=== PATIENT | male | born 1995 | race Caucasian/White ===

== ENCOUNTER 2017-01-20 10:43 | Emergency (ER) | payer OTHER ==
[2017-01-20 10:48] VITALS: TEMP 97.7
[2017-01-20 11:41] LABS: % IMMATURE GRANULYOCYTES 0.2 % (0.0-1.1); ABSOLUTE IMMATURE GRANULOCYTES 0.01 10^3/uL (0.00-0.10); ADD DIFF? NO; ADD MORPH? NO; ADD SCAN? NO; ATYPICAL LYMPHOCYTE FLAG 20 (0-99); FRAGMENT RBC FLAG 0 (0-99); HEMATOCRIT 46.1 % (40.0-51.0); HEMOGLOBIN 15.8 g/dL (13.7-17.5); LEFT SHIFT FLG 0 (0-99); LIPEMIA HEMOLYSIS FLAG 90 (0-99); MEAN CELL HEMOGLOBIN 29.8 pg (27.9-34.1); MEAN CELL HEMOGLOBIN CONCENTR. 34.3 g/dL (32.4-36.7); MEAN CELL VOLUME 86.8 fL (81.5-99.8); PLATELET CLUMPS FLAG 0 (0-99); PLATELET COUNT 214 10^3/uL (150-400); RED BLOOD CELL COUNT 5.31 10^6/uL (4.40-6.38); RED CELL DISTRIBUTION WIDTH 13.7 % (11.5-15.2)
[2017-01-20] MEDS ORDERED: NS 1,000 ML IV ONE (11:47)
--- NOTE | 2017-01-20 11:49 | EDPHY ---
General Narrative: CHIEF COMPLAINT: Periumbilical abdominal pain, concerned about appendicitis HISTORY OF PRESENT ILLNESS: Patient complains of periumbilical no pain. Pain started this morning, but he felt some generalized discomfort of the abdomen yesterday. The pain was sharp this morning. 6/10. Does not radiate. Worse with Valsalva or bearing down. No nausea or vomiting but he has no appetite. He has no urinary complaints. He has no constipation or diarrhea. No fever chills. No trauma or injury. He is concerned as he has 2 family members who had appendicitis. No other associated complaints or modifying factors. REVIEW OF SYSTEMS: Ten systems reviewed and are negative unless otherwise noted in the HPI PCP: Dr. Trevino SPECIALISTS: None PAST MEDICAL HISTORY: None PAST SURGICAL HISTORY: [place] tooth extraction SOCIAL HISTORY: Nonsmoker. No alcohol or drug use. [employer] student. Originally from [place] FAMILY HISTORY: Noncontributory EXAMINATION General Appearance: Alert, no distress Head: normocephalic, atraumatic Eyes: Pupils equal and round, no conjunctival pallor or injection ENT, Mouth: Mucous membranes moist. Airway patent Neck: Normal inspection, supple, non-tender Respiratory: Lungs are clear to auscultation. No wheezing rhonchi or crackles Cardiovascular: Regular rate and rhythm. No murmur Gastrointestinal: Abdomen is soft and nondistended. Tenderness in the periumbilical and right lower quadrants. Guarding in the right lower quadrant. Positive Rovsing. Negative heel jar. Negative obturator. No tympany rigidity. Neurological: A&O, nonfocal, normal gait Skin: Warm and dry, no rash. No petechiae or purpura Extremities: Nontender, no pedal edema Psychiatric: Mood and affect normal DIFFERENTIAL DIAGNOSES: Including but not limited to acute appendicitis, gastritis, colitis, enteritis, mesenteric adenitis MDM: 11:40 a.m. Periumbilical pain that started this morning. Exam does not suggest acute appendicitis, but he has a high concern for this. I have ordered CT scan of the abdomen pelvis rule out appendicitis. He is resting comfortably in no acute distress. Vital signs stable 12:45 p.m. Contacted by radiologist Dr. Townsend. CT scan findings discussed. Laboratory studies are negative. He is afebrile and resting comfortably. 12:55 p.m. Patient re-evaluated. Pain is tolerable. No vomiting. Afebrile. Vital signs stable. We discussed the laboratory studies and CT scan findings. We discussed the likelihood of mesenteric adenitis. We discussed the etiology and the self- limiting nature of this. Recommend rest, anti-inflammatories and fluid. Recommend return to emergency department for any worsening symptoms or 24 hr if no improvement. I did offer a general surgical consult, and the patient has declined. I have answered all his questions. He is stable for discharge home Patient is comfortable this plan. SUPERVISION: Patient was independently examined, but I discussed the case with my secondary supervising physician Dr. Coles - Diagnostics Imaging Results: Imaging Impressions Abdomen CT 01/20/17 11:47 Impression: 1. No CT findings to support a clinical diagnosis of acute appendicitis. 2. Query mesenteric adenitis. Results called and discussed with Reynaldo Sharp PA-C, on 01/20/2017 at 12:47. - History Smoking Status: Never smoked - Objective Vital Signs: Initial Vital Signs Temperature (C) 97.7 F 01/20/17 10:46 Heart Rate 53 L 01/20/17 10:46 Respiratory Rate 16 01/20/17 10:46 Blood Pressure 149/85 H 01/20/17 10:46 O2 Sat (%) 97 01/20/17 10:46 O2 Delivery Mode Room Air Allergies/Adverse Reactions: No Known Allergies Allergy (Unverified 01/20/17 10:46) Home Medications: Medication Instructions Recorded NK [No Known Home Meds] 01/20/17 Laboratory Results: Laboratory Results 01/20/17 11:31 01/20/17 11:31 01/20/17 01/20/17 11:31 11:31 WBC 6.37 10^3/uL 10^3/uL (3.80-9.50) RBC 5.31 10^6/uL 10^6/uL (4.40-6.38) Hgb 15.8 g/dL g/dL (13.7-17.5) Hct 46.1 % % (40.0-51.0) MCV 86.8 fL fL (81.5-99.8) MCH 29.8 pg pg (27.9-34.1) MCHC 34.3 g/dL g/dL (32.4-36.7) RDW 13.7 % % (11.5-15.2) Plt Count 214 10^3/uL 10^3/uL (150-400) MPV 10.0 fL fL (8.7-11.7) Neut % (Auto) 48.7 % % (39.3-74.2) Lymph % (Auto) 35.0 % % (15.0-45.0) [place] % (Auto) 12.7 % % (4.5-13.0) Eos % (Auto) 2.8 % % (0.6-7.6) Baso % (Auto) 0.6 % % (0.3-1.7) Nucleat RBC Rel Count 0.0 % % (0.0-0.2) Absolute Neuts (auto) 3.10 10^3/uL 10^3/uL (1.70-6.50) Absolute Lymphs (auto) 2.23 10^3/uL 10^3/uL (1.00-3.00) Absolute Monos (auto) 0.81 10^3/uL H 10^3/uL (0.30-0.80) Absolute Eos (auto) 0.18 10^3/uL 10^3/uL (0.03-0.40) Absolute Basos (auto) 0.04 10^3/uL 10^3/uL (0.02-0.10) Absolute Nucleated RBC 0.00 10^3/uL 10^3/uL (0-0.01) Immature Gran % 0.2 % % (0.0-1.1) Immature Gran # 0.01 10^3/uL 10^3/uL (0.00-0.10) Sodium 144 mEq/L mEq/L (134-144) Potassium 4.2 mEq/L mEq/L (3.5-5.2) Chloride 104 mEq/L mEq/L (97-110) Carbon Dioxide 24 mEq/l mEq/l (22-31) Anion Gap 16 mEq/L mEq/L (8-16) BUN 18 mg/dL mg/dL (7-23) Creatinine 1.1 mg/dL mg/dL (0.7-1.3) Estimated GFR > 60 Glucose 86 mg/dL mg/dL (70-100) Calcium 10.4 mg/dL mg/dL (8.5-10.4) Total Bilirubin 0.3 mg/dL mg/dL (0.1-1.4) Conjugated Bilirubin 0.1 mg/dL mg/dL (0.0-0.5) Unconjugated Bilirubin 0.2 mg/dL mg/dL (0.0-1.1) AST 37 IU/L IU/L (17-59) ALT 46 IU/L IU/L (21-72) Alkaline Phosphatase 72 IU/L IU/L (38-126) Total Protein 8.3 g/dL H g/dL (6.3-8.2) Albumin 4.7 g/dL g/dL (3.5-5.0) Lipase 62 IU/L IU/L (23-300) Medications Given: Discontinued Medications Sodium Chloride (Ns) 1,000 mls @ 0 mls/hr IV EDNOW ONE; Wide Open PRN Reason: Protocol Stop: 01/20/17 11:48 Last Admin: 01/20/17 12:05 Dose: 1,000 mls Departure - Departure Disposition: Home, Routine, Self-Care Clinical Impression: Mesenteric adenitis Condition: Good Instructions: Mesenteric Adenitis (ED), Acute Abdominal Pain (ED) Additional Instructions: 1. Rest and increase fluid intake 2. Ibuprofen 800 mg every 8 hr or Aleve 1-2 pills every 12 hr for the next 5-7 days 3. Contact primary care physician For follow-up 4. Return to emergency department for any worsening of pain, fever, nausea vomiting 5. Return to emergency department in 24 hr for recheck if no improvement Referrals: CRISTIANO TREVINO [Other] - As per Instructions Physician,Emergency Dept, [Medical Doctor] - 1 day, if not improved
[2017-01-20 11:55] LABS: ALANINE AMINOTRANSFERASE 46 IU/L (21-72); ALBUMIN 4.7 g/dL (3.5-5.0); ALKALINE PHOSPHATASE 72 IU/L (38-126); ANION GAP 16 mEq/L (8-16); ASPARTATE AMINOTRANSFERASE 37 IU/L (17-59); BILIRUBIN,TOTAL 0.3 mg/dL (0.1-1.4); BILIRUBIN-CONJUGATED 0.1 mg/dL (0.0-0.5); BILIRUBIN-UNCONJUGATED 0.2 mg/dL (0.0-1.1); CALCIUM 10.4 mg/dL (8.5-10.4); CARBON DIOXIDE 24 mEq/l (22-31); CHLORIDE 104 mEq/L (97-110); CREATININE 1.1 mg/dL (0.7-1.3); GLOMERULAR FILTRATION RATE > 60; GLUCOSE 86 mg/dL (70-100); POTASSIUM 4.2 mEq/L (3.5-5.2); SODIUM 144 mEq/L (134-144); TOTAL PROTEIN 8.3 g/dL (6.3-8.2)
[2017-01-20] MEDS ORDERED: IOPAMIDOL (ISOVUE-300) 100 ML BTL ONE (12:06)
[2017-01-20 13:20] VITALS: BP 131/73; PULSE 61; RESP 18; O2SAT 96
== END 2017-01-20 13:21 | disposition home or self-care (01) ==
DX: I88.0 Nonspecific mesenteric lymphadenitis (principal); E86.9 Volume depletion, unspecified
CPT/HCPCS: Q9967